=== PATIENT | male | born 1995 | race Two or more races ===

== ENCOUNTER 2021-02-10 20:16 | Emergency (ER) | payer SELFPAY ==
[~2021-02-10] VITALS: Ht 167.6 cm; Wt 54.0 kg
[2021-02-10 20:22] VITALS: BP 124/90
[2021-02-10 21:21] LABS: CLARITY,URINE CLEAR (Clear); COLOR,URINE YELLOW (Yellow); GLUCOSE, URINE NEGATIVE (Neg); KETONES,URINE NEGATIVE (Neg); LEUKOCYTE ESTERASE ,URINE NEGATIVE (Neg); NITRITES, URINE NEGATIVE (Neg); OCCULT BLOOD,URINE NEGATIVE (Neg); PROTEIN,URINE NEGATIVE (Neg)
[2021-02-10 21:23] LABS: UA COLLECTION TYPE CLN CATCH MIDSTREAM
== END 2021-02-11 00:51 | disposition left against medical advice (07) ==
LOC: ER 20:17
DX: N48.89 Other specified disorders of penis (principal); Z53.21 Procedure and treatment not carried out due to patient leaving prior to being seen by health care provider
CPT/HCPCS: 81003

== ENCOUNTER 2021-02-17 00:33 | Emergency (ER) | payer MEDICAID ==
[~2021-02-17] VITALS: Ht 160 cm; Wt 59.9 kg
[2021-02-17] MEDS ORDERED: acetaminophen 325mg tablet PO ONE (01:05)
[2021-02-17 01:24] VITALS: BP 118/92
== END 2021-02-17 01:39 | disposition home or self-care (01) ==
LOC: ER 00:34
DX: R07.89 Other chest pain (principal)
CPT/HCPCS: 99282

== ENCOUNTER 2021-02-17 16:17 | Emergency (ER) | payer MEDICAID ==
[~2021-02-17] VITALS: Ht 165.1 cm; Wt 59.1 kg
[2021-02-17 20:10] VITALS: BP 133/83
== END 2021-02-17 18:40 | disposition home or self-care (01) ==
LOC: ER 16:17
DX: S60.131A Contusion of right middle finger with damage to nail, initial encounter (principal); M79.644 Pain in right finger(s); M79.89 Other specified soft tissue disorders; X58.XXXA Exposure to other specified factors, initial encounter; Y93.89 Activity, other specified; Y92.89 Other specified places as the place of occurrence of the external cause; Y99.8 Other external cause status
CPT/HCPCS: 11740; 73140; 99284